=== PATIENT | female | born 2000 | race African-American/Black ===

== ENCOUNTER 2022-04-12 14:05 | Emergency (ER) | payer OTHER ==
[~2022-04-12] VITALS: Ht 165.1 cm; Wt 54.5 kg
[2022-04-12] MEDS ORDERED: SODIUM CHLORIDE 0.9% 1,000 ML IV ONE (15:00)
[2022-04-12 15:55] LABS: CHLORIDE 105 mEq/L (98-107)
[2022-04-12 17:56] LABS: BASOPHILS % 0.6 % (0.0-2.0); EOSINOPHILS % 2.5 % (0.0-5.0); HEMATOCRIT. 37.3 % (36.0-48.0); HEMOGLOBIN. 12.2 g/dL (12.0-16.0); LYMPHOCYTES % 20.5 % (20.0-50.0); MEAN CORPUSCULAR HEMOGLOBIN 26.9 pg (28.0-32.0); MEAN CORPUSCULAR VOLUME 82.2 fL (81.0-99.0); MEAN PLATELET VOLUME 8.7 fl (7.4-10.4); MONOCYTES % 7.7 % (2.0-8.0); NEUTROPHILS % 68.7 % (40.0-76.0); PLATELET 256 x1000/uL (130-400); RED BLOOD CELL COUNT 4.53 mill/uL (4.2-5.4); RED CELL DISTRIBUTION WIDTH 13.8 % (11.6-14.6)
[2022-04-12 18:23] LABS: CLARITY URINE CLEAR (CLEAR); COLOR URINE YELLOW (YELLOW); KETONES URINE NEGATIVE (NEGATIVE); LEUKOCYTE ESTERASE URINE TRACE (NEGATIVE); NITRITE URINE NEGATIVE (NEGATIVE); OCCULT BLOOD URINE NEGATIVE (NEGATIVE); PH URINE 7.5 (4.5-8.0); PROTEIN URINE NEGATIVE (NEGATIVE); SPECIFIC GRAVITY URINE 1.009 (1.005-1.030); UROBILINOGEN URINE 0.2 E.U./dL (0.2-1.0)
[2022-04-12 18:31] LABS: HCG SCREEN NEGATIVE
[2022-04-12 19:27] LABS: *AMPHETAMINES SCREEN URINE NEGATIVE (NEGATIVE); *BARBITURATES SCREEN URINE NEGATIVE (NEGATIVE); *BENZODIAZEPINES SCREEN URINE NEGATIVE (NEGATIVE); *COCAINE SCREEN URINE NEGATIVE (NEGATIVE)
[2022-04-12 19:28] LABS: CANNABINOID URINE SCREEN PRESUMTIVE POSITIVE (NEGATIVE); METHADONE URINE SCREEN NEGATIVE (NEGATIVE); OPIATES URINE SCREEN NEGATIVE (NEGATIVE); PHENCYCLIDINE URINE SCREEN NEGATIVE (NEGATIVE)
[2022-04-12 21:00] VITALS: BP 99/62
== END 2022-04-12 21:00 | disposition home or self-care (01) ==
LOC: ER 14:19
DX: R56.9 Unspecified convulsions (principal); D57.3 Sickle-cell trait; J45.909 Unspecified asthma, uncomplicated; Z91.81 History of falling
CPT/HCPCS: 36415; 80053; 80305; 81003; 84703; 85025; 96360; 99285

== ENCOUNTER 2025-06-23 19:19 | Emergency (ER) | payer OTHER ==
[~2025-06-23] VITALS: Ht 261.6 cm; Wt 82.0 kg
[2025-06-23 19:27] VITALS: TEMP 37.1; O2SAT 97
[2025-06-23] MEDS: LEVETIRACETAM 500MG/5ML CUP PO ONE (19:45)
[2025-06-23] MEDS: SODIUM CHLORIDE 0.9% 1,000 ML IV ONE (20:32)
[2025-06-23] MEDS: LEVETIRACETAM 500MG TABLET PO ONE (20:33)
[2025-06-23 20:36] LABS: BASOPHILS % 0.7 % (0.0-2.0); EOSINOPHILS % 8.7 % (0.0-5.0); HEMATOCRIT. 37.8 % (36.0-48.0); HEMOGLOBIN. 12.1 g/dL (12.0-16.0); LYMPHOCYTES % 24.1 % (20.0-50.0); MEAN PLATELET VOLUME 8.1 fl (7.4-10.4); MONOCYTES % 8.6 % (2.0-8.0); NEUTROPHILS % 57.9 % (40.0-76.0); PLATELET 235 x1000/uL (130-400); RED BLOOD CELL COUNT 4.78 mill/uL (4.2-5.4); RED CELL DISTRIBUTION WIDTH 15.6 % (11.6-14.6)
[2025-06-23 20:45] LABS: CREATININE 0.8 mg/dL (0.6-1.0)
[2025-06-23 20:46] LABS: UREA NITROGEN BLOOD 9 mg/dL (9-23)
[2025-06-23 20:47] LABS: ASPARTATE AMINOTRANSFERASE 13 IU/L (<34)
[2025-06-23 20:48] LABS: BILIRUBIN DIRECT 0.1 mg/dL (<=3.0); BILIRUBIN TOTAL 0.4 mg/dL (0.1-1.0); PROTEIN TOTAL 6.9 g/dL (6.0-8.3)
[2025-06-23] MEDS: METOCLOPRAMIDE HCL 10MG/2ML VIAL IV ONE (20:54)
[2025-06-23 21:01] LABS: HCG SCREEN NEGATIVE
[2025-06-23 21:28] VITALS: BP 112/70; PULSE 72; RESP 18; O2SAT 100
== END 2025-06-23 21:28 | disposition home or self-care (01) ==
LOC: ER 19:19
DX: G40.909 Epilepsy, unspecified, not intractable, without status epilepticus (principal); D57.1 Sickle-cell disease without crisis; Z88.6 Allergy status to analgesic agent
CPT/HCPCS: 80076; 80048; 80320; 84703; 83735; 85025; 36415; 93005; 96361; 96374; 99284; J2765; J7030; G0480